=== PATIENT | male | born 2000 | race Caucasian/White ===

== ENCOUNTER 2021-12-29 17:46 | Emergency (ER) | payer OTHER ==
[~2021-12-29] VITALS: Ht 167.6 cm; Wt 101.2 kg
[2021-12-29 18:30] VITALS: BP 153/107
[2021-12-29] MEDS ORDERED: CYCL-711 PO (20:23)
[2021-12-29] MEDS ORDERED: IBUP-2213 PO (20:23)
[2021-12-29 21:49] VITALS: BP 168/86
== END 2021-12-29 21:45 | disposition home or self-care (01) ==
LOC: MED 17:46
DX: S46.912A Strain of unspecified muscle, fascia and tendon at shoulder and upper arm level, left arm, initial encounter (principal); S66.912A Strain of unspecified muscle, fascia and tendon at wrist and hand level, left hand, initial encounter; M54.50 Low back pain, unspecified; W18.30XA Fall on same level, unspecified, initial encounter; Y93.55 Activity, bike riding; Y92.89 Other specified places as the place of occurrence of the external cause; Y99.8 Other external cause status
CPT/HCPCS: 73030; 73110; 99284

== ENCOUNTER 2023-05-10 17:06 | Emergency (ER) | payer OTHER ==
[~2023-05-10] VITALS: Ht 170.2 cm; Wt 94.9 kg
[~2023-05-10 17:06] MED LIST: CYCL-711 PO; IBUP-2213 PO
[2023-05-10 17:21] VITALS: BP 128/75; PULSE 118; RESP 18; TEMP 99.6; O2SAT 96
[2023-05-10] MEDS ORDERED: IBUPROFEN 600 MG TAB PO ONE (18:40)
[2023-05-10 19:42] LABS: FLU A ANTIGEN negative (NEGATIVE); FLU B ANTIGEN NEGATIVE (NEGATIVE)
[2023-05-10] MEDS ORDERED: ACET-10509 PO (19:54)
[2023-05-10 20:23] VITALS: BP 101/62; PULSE 91; RESP 18; TEMP 97.5; O2SAT 97
== END 2023-05-10 20:23 | disposition home or self-care (01) ==
LOC: MED 17:06
DX: B34.9 Viral infection, unspecified (principal); R50.9 Fever, unspecified; M79.10 Myalgia, unspecified site; R68.83 Chills (without fever); Z79.899 Other long term (current) drug therapy; Z20.822 Contact with and (suspected) exposure to COVID-19
CPT/HCPCS: 99283